=== PATIENT | male | born 1945 | race Caucasian/White ===

== ENCOUNTER → 2017-09-17 09:45 | Outpatient (CLI) | payer MEDICARE, OTHER, SELFPAY ==
--- NOTE | 2017-09-20 14:39 | PM.PFT.1 ---
Pulmonary Function Test Referral & Results Date Patient Seen: 09/17/17 Requesting provider: Spenser Garcia Results: The spirometry demonstrates an FVC of 1.80 L which is 41% of predicted. The FEV1 was measured at 1.21 L which is 38% of predicted. The FEV1/FVC ratio was 67 which is 91% of predicted. Following the administration of bronchodilator there was no appreciable change. Lung volumes show an SVC of 2.09 L which is 46% of predicted. The diffusing capacity was measured at 20.25 which is 62% of predicted. No hemoglobin value was provided, so no correction for potential anemia could be made, if appropriate. The maximum voluntary ventilation was reduced. Interpretation: This study demonstrates moderately severe obstructive lung disease without evidence of benefit following bronchodilator There is also severe restrictive lung disease present and significant disease at the capillary alveolar level based on significant reduction in diffusing capacity Clinical correlation suggested
== END ==
PROVIDERS: Family Provider Family Medicine; PCP Family Medicine; Visit Provider Family Medicine
DX: R06.09 Other forms of dyspnea (principal)
CPT/HCPCS: 94010; 94060; 94726; 94729

== ENCOUNTER → 2017-09-30 10:55 | Outpatient (CLI) | payer MEDICARE, OTHER, SELFPAY ==
--- NOTE | 2017-09-30 10:56 | DI.RAD.S_ITS ---
PROCEDURE: XR CHEST 2V INDICATIONS: shortness of breath TECHNIQUE: 2 views of the chest were acquired. COMPARISON: [facility], , CHEST 2 VIEW, 03/08/2017, 13:37. [facility], , CHEST 1 VIEW, 02/19/2017, 15:59. [facility], , CHEST 2 VIEW, 02/18/2017, 11:25. FINDINGS: Surgical changes and devices: Pacemaking device and dual chamber leads stable over time. Lungs and pleura: No mass in the lung parenchyma is seen. A mild pulmonary edema pattern appears present. Subpulmonic right effusion has mildly enlarged from the comparison study in March of last year. This appears to represent slow interval growth given its presence also in 02/19/17. Mediastinum: Mediastinal contours are normal. Heart size is mildly enlarged. Bones and chest wall: No suspicious bony abnormalities. Soft tissues appear unremarkable. IMPRESSION: Mild cardiomegaly, mild chronic CHF pattern with slowly enlarging subpulmonic right pleural effusion now moderate in size. Pacemaking device and dual chamber leads appear normal. Dictated by: Tha Garner M.D. on 09/30/2017 at 11:20 Approved by: Tha Garner M.D. on 09/30/2017 at 11:24
== END ==
PROVIDERS: Family Provider Family Medicine; PCP Family Medicine; Visit Provider Family Medicine
DX: I51.7 Cardiomegaly (principal); I50.9 Heart failure, unspecified; J90 Pleural effusion, not elsewhere classified; R06.02 Shortness of breath; Z95.0 Presence of cardiac pacemaker
CPT/HCPCS: 71046

== ENCOUNTER → 2018-02-27 15:15 | Outpatient (CLI) | payer MEDICARE, OTHER, SELFPAY | PROVIDERS: PCP Student in an Organized Health Care Education/Training Program; Visit Provider Internal Medicine Cardiovascular Disease | DX: R06.09 Other forms of dyspnea (principal) | CPT/HCPCS: 36415; 83880 ==

== ENCOUNTER 2018-06-02 16:42 | Emergency (ER) | payer MEDICARE, OTHER, SELFPAY ==
[2018-06-02 16:43] VITALS: BP 117/68; PULSE 89; RESP 22; TEMP 36.7; O2SAT 98; BMI 35.4
[2018-06-02 17:18] VITALS: PULSE 61; RESP 16; O2SAT 96
[2018-06-02] MEDS: ALBUTEROL/IPRATROPIUM 3 ML AMPUL INH (17:18)
--- NOTE | 2018-06-02 17:23 | ED.SOB ---
HPI - SOB/Dyspnea General Chief Complaint: Shortness of Breath/Dyspnea Stated Complaint: SOB Time Seen by Provider: 06/02/18 17:23 Source: patient Mode of arrival: ambulatory Limitations: no limitations History of Present Illness The patient has CHF. He has a history of pulmonary effusions, has right side has been tapped 3 times in recent weeks. He complains of increasing dyspnea over last week. He has had orthopnea for the last 5 days. He has no fever or chills. He denies chest pain. He notices swelling in his ankles. He does not check his weight daily. He has a history of atrial fib, he has a pacemaker in. He is anticoagulated. He is a nonsmoker. He is uncertain if he has asthma. He has multiple cardiac risk factors associated with the cardiac disease mentioned above. An echo done last UA shows 60-65 percent EF. He has [id number] concentric LV dysfunction. Related Data Home Medications Medication Instructions Recorded Confirmed atenolol 100 mg PO DAILY 06/02/18 06/02/18 atorvastatin 40 mg PO DAILY 06/02/18 06/02/18 telmisartan [Micardis] 40 mg PO DAILY 06/02/18 06/02/18 torsemide 80 mg PO DAILY 06/02/18 06/02/18 Previous Rx's Medication Instructions Recorded [pen insulin needles ] #30 06/06/12 Glucose: Test Strips str SQ BID #200 03/05/17 [place] 5/16 Inch #1 ea 09/30/17 albuterol sulfate HFA 90 2 puff INHALATION Q4HP PRN #1 ea 09/30/17 mcg/actuation aerosol inhaler fluticasone 110 mcg/actuation HFA 1 puff INHALATION BID #12 gram 11/26/17 aerosol inhaler insulin glargine (U-100) 100 33 unit SUBCUT BID #3 box 01/20/18 unit/mL (3 mL) subcutaneous pen warfarin 5 mg tablet 5 mg PO SEE INSTRUCTIONS #100 tab 05/20/18 Allergies Allergy/AdvReac Type Severity Reaction Status Date / Time latex [LATEX] Allergy Intermediate ITCHING Verified 06/02/18 16:43 Review of Systems Review of Systems ROS Unobtainable: All systems reviewed & are unremarkable except as noted in HPI and below Constitutional Denies chills, Denies fever(s), Denies lethargy and Denies weakness Cardiovascular Denies chest pain, Denies diaphoresis, Denies syncope, Denies rapid heart rate, Reports leg edema and Reports dyspnea Respiratory Denies cough, Reports dyspnea and Reports other (Orthopnea.) Gastrointestinal Gastrointestinal: Denies abdominal pain, Denies change in bowel habits, Denies diarrhea, Denies nausea and Denies vomiting Musculoskeletal Denies back pain and Denies numbness Integumentary/Breasts Denies pruritus, Denies erythema, Denies rash and Denies wounds Neurologic Denies syncope, Denies numbness and Denies weakness [facility] Medical History Sick sinus syndrome (Chronic) Sleep apnea (Chronic) Atrial fibrillation with RVR (Chronic) Essential hypertension (Chronic 03/15/15) History of malignant neoplasm of testis (Chronic 03/15/15) Mixed hyperlipidemia (Chronic 03/15/15) Presence of cardiac pacemaker (Chronic 11/09/14) Arthritis of hip (Chronic 08/05/15) Retinopathy (Chronic 08/05/15) History of smoking (Chronic 08/30/15) Chronic pulmonary edema (Chronic 11/28/15) Cough (Chronic 01/17/16) Shortness of breath (Chronic 01/17/16) Type 2 diabetes mellitus without complication, with long-term current use of insulin (Chronic 09/27/16) Obstructive sleep apnea syndrome (Chronic 12/28/16) Congestive heart failure (Chronic 03/04/17) Pleural effusion on right (Suspected 03/04/17) Aortic atherosclerosis (Chronic Unknown) Atrial fibrillation (Chronic Unknown) Diabetes (Chronic Unknown) Hyperlipemia (Chronic Unknown) Hypertension (Chronic Unknown) Hx of congestive heart failure (Resolved 01/2017) Pacemaker (Resolved 10/2010) Testicular cancer (Resolved Unknown) Surgical History Status post cholecystectomy History of orchiectomy (Resolved 2008) Hx of total hip arthroplasty (Resolved 08/2015) S/P total hip arthroplasty (Chronic) History of colon resection (Resolved 1999) Family History Mother Cancer Social History marital status: household members: spouse lives independently: Yes caregiver/support person: No Smoking Status: Never smoker Family History Mother Cancer Social History marital status: household members: spouse lives independently: Yes caregiver/support person: No Smoking Status: Never smoker Exam Initial Vital Signs Initial Vital Signs: Vital Signs Temperature 98.1 F 06/02/18 16:43 Pulse Rate 89 06/02/18 16:43 Respiratory Rate 22 06/02/18 16:43 Blood Pressure 117/68 06/02/18 16:43 Pulse Oximetry 98 06/02/18 16:43 Const General: cooperative and well developed Nutritional Appearance: well nourished Orientation: alert, awake, oriented x3 and not confused HENMT Face and sinus: normal facial exam Mouth: oral mucosae normal Throat: posterior oropharynx normal Eyes General: appearance normal, both eyes and all related structures Eyelids: eyelids normal Conjunctivae: conjunctivae normal Sclera: sclerae normal Pupils: PERRL EOM: EOM intact bilaterally Neck Neck: No JVD Chest Chest: normal inspection of the chest Resp Effort & Inspection: other (Decreased breath sounds in the right base.) Cardio Rate: regular rate Rhythm: regular rhythm Heart Sounds: S1 normal, S2 normal, no click, no gallops, no murmurs and no rubs Pulses: normal peripheral pulses GI Inspection: non-distended Palpation: soft, no hepatosplenomegaly, No guarding, No pulsatile mass and No tender Auscultation: normal bowel sounds Skin General: no rashes or lesions noted, No jaundice and No petechiae Neuro General: alert, oriented x3, gait normal and no focal motor deficits Speech: speech normal Extrem General: full ROM, no clubbing, cyanosis or edema, no calf tenderness and edema (3+ bilaterally. Peripheral pulses are intact.) Course Course Narrative: the patient is influence. He was diuresed a bit. Chest x-rays shows significant resolution of the effusion he has experienced recently. His heart and lungs are function really well. He is discharged home with requested follow-up with his doctor recheck later this week. Orders Ordered: ED Orders 06/02/18 16:47 Consult to Respiratory Therapy Evaluate & Treat EKG-12 Lead Stat 06/02/18 17:05 B Type Natriuretic Peptide Stat Basic Metabolic Panel Stat Complete Blood Count AUTO DIFF Stat Influenza A and B by PCR Rapid Stat Lactate (Lactic Acid) Stat Magnesium Stat Procalcitonin Stat Troponin & CK Cardiac Panel Stat 06/02/18 17:43 XR chest 1V Stat Discontinued Medications Albuterol/Ipratropium (Duoneb) 3 ml INH NOW ONE Stop: 06/02/18 16:48 Last Admin: 06/02/18 17:18 Dose: 3 ml Furosemide (Lasix) 40 mg IV NOW ONE Stop: 06/02/18 17:30 Last Admin: 06/02/18 17:57 Dose: 40 mg Vital Signs - 8 hr 06/02/18 16:43 06/02/18 17:18 06/02/18 17:43 Temperature 98.1 F 98.0 F Pulse Rate 89 61 64 Respiratory Rate 22 16 18 Blood Pressure 117/68 Blood Pressure [Right Arm] 90/52 L Pulse Oximetry 98 96 100 MDM - SOB/Dyspnea Lab Data Result diagrams: 06/02/18 17:05 06/02/18 17:05 Lab Results 06/02/18 06/02/18 06/02/18 Range/Units 17:05 17:05 17:05 WBC 4.3 L (4.5-11.0) X10^3/uL RBC 4.94 (4.5-5.9) X10^6/uL Hgb 14.9 (13.5-17.5) g/dL Hct 45.5 (41-53) % MCV 92.1 (80-100) fL MCH 30.2 (26-34) PG MCHC 32.8 (30-36) % RDW 14.9 H (11.6-14.8) % Plt Count 189 (150-400) X10^3/uL Neut % (Auto) 53.6 (50-75) % Lymph % (Auto) 22.1 L (25-40) % [place] % (Auto) 20.1 H (3-14) % Eos % (Auto) 3.0 (2-4) % Baso % (Auto) 1.2 (0-2) % Neut # (Auto) 2300 (1954-8244) /uL Lymph # (Auto) 1000 L (4865-7505) /uL [place] # (Auto) 900 (0-900) /uL Eos # (Auto) 100 (0-450) /uL Baso # (Auto) 100 (0-100) /uL Sodium 139 (137-145) mmol/L Potassium 4.3 (3.4-5.1) mmol/L Chloride 100 (98-107) mmol/L Carbon Dioxide 30 (22-32) mmol/L BUN 56 H (9-20) mg/dL Creatinine 2.00 H (0.66-1.25) mg/dL Estimated GFR 32.9 L (>60) mL/min BUN/Creatinine Ratio 28.0 H (6-22) Glucose 142 H (80-110) mg/dL Lactate (0.7-2.1) mmol/L Calcium 8.9 (8.4-10.2) mg/dL Magnesium 2.2 (1.6-2.3) mg/dL Total Creatine Kinase 185 H (55-170) U/L CK-MB (CK-2) 2.05 (<2.37) ng/mL CK-MB (CK-2) Rel Index 1.1 L (1.5-5.0) % Troponin I 0.057 H (0.01-0.034) ng/mL B-Natriuretic Peptide 426 H (<100) Procalcitonin 0.14 (<0.5) ng/mL Influenza A & B (PCR) (Negative) 06/02/18 06/02/18 Range/Units 17:05 17:05 WBC (4.5-11.0) X10^3/uL RBC (4.5-5.9) X10^6/uL Hgb (13.5-17.5) g/dL Hct (41-53) % MCV (80-100) fL MCH (26-34) PG MCHC (30-36) % RDW (11.6-14.8) % Plt Count (150-400) X10^3/uL Neut % (Auto) (50-75) % Lymph % (Auto) (25-40) % [place] % (Auto) (3-14) % Eos % (Auto) (2-4) % Baso % (Auto) (0-2) % Neut # (Auto) (6433-1977) /uL Lymph # (Auto) (4631-1753) /uL [place] # (Auto) (0-900) /uL Eos # (Auto) (0-450) /uL Baso # (Auto) (0-100) /uL Sodium (137-145) mmol/L Potassium (3.4-5.1) mmol/L Chloride (98-107) mmol/L Carbon Dioxide (22-32) mmol/L BUN (9-20) mg/dL Creatinine (0.66-1.25) mg/dL Estimated GFR (>60) mL/min BUN/Creatinine Ratio (6-22) Glucose (80-110) mg/dL Lactate 1.3 (0.7-2.1) mmol/L Calcium (8.4-10.2) mg/dL Magnesium (1.6-2.3) mg/dL Total Creatine Kinase (55-170) U/L CK-MB (CK-2) (<2.37) ng/mL CK-MB (CK-2) Rel Index (1.5-5.0) % Troponin I (0.01-0.034) ng/mL B-Natriuretic Peptide (<100) Procalcitonin (<0.5) ng/mL Influenza A & B (PCR) Positive, type a A (Negative) Imaging Data Chest x-ray: Radiologist's impression: [address] [address] XRay Report Signed Patient: Jenaro Hassan WMR#: [id number] : 6Acct:[id number] Age/Sex: 73 / MDate of Service: 06/02/18 Loc: ED Accession Number: [id number] Procedure: XR chest 1V Ordering Provider: Fernando Jin M.D. PROCEDURE: XR CHEST 1V INDICATIONS: Dyspnea TECHNIQUE: One view of the chest was acquired. COMPARISON: [facility], , XR CHEST 2V, 09/30/2017, 10:35. FINDINGS: Surgical changes and devices: None. Lungs and pleura: Small to moderate size right pleural effusion is seen, decreased compared to previous study. No significant left-sided pleural effusion. Underlying right lower lobe infiltrate cannot be excluded. No gross pneumothorax. Mediastinum: Mediastinal contours appear normal. Heart size is enlarged. Bones and chest wall: No suspicious bony lesions. Overlying soft tissues appear unremarkable. IMPRESSION: Small to moderate right pleural effusion with right lower lobe infiltrate/atelectasis, decreased in size compared to 2018 study. No gross pneumothorax. Dictated by: Dameon Wilson M.D. on 06/02/2018 at 18:18 Approved by: Dameon Wilson M.D. on 06/02/2018 at 18:19 ECG Data Attestation: I personally reviewed and interpreted this ECG as follows: (Paced rhythm rate [address] or T-wave changes.) Discharge Plan Departure Patient Disposition: Home Clinical Impression: Influenza A Interventions: ED Discharge Assessment Last Done: 06/02/18 18:46 Instructions: DI for Influenza -- Adult Activity Restrictions/Additional Instructions: Drink fluids fluids, get plenty of rest. Robitussin as needed for cough if necessary. Tylenol as needed for body pains, discomfort. Recheck with her doctor in 2-3 days if not improving. Return to the ER for worse. Prescriptions: No Action albuterol sulfate [Ventolin HFA] 90 mcg/actuation HFA aerosol inhaler 2 puff INHALATION Q4HP PRN (Reason: shortness of breath or wheezing) Qty: 1 RF: 5 [place] 5/16 Inch .Route .MEDSUPPLY Qty: 1 RF: 3 fluticasone [Flovent HFA] 110 mcg/actuation HFA aerosol inhaler 1 puff INHALATION BID Qty: 12 RF: 5 [pen insulin needles ] Qty: 30 RF: 2 Glucose: Test Strips SQ BID Qty: 200 RF: 0 insulin glargine [Lantus Solostar U-100 Insulin] 100 unit/mL (3 mL) insulin pen 33 unit SUBCUT BID Qty: 3 RF: 5 warfarin [Coumadin] 5 mg tablet 5 mg PO SEE INSTRUCTIONS Qty: 100 RF: 3 atorvastatin 40 mg tablet 40 mg PO DAILY RF: 0 atenolol 100 mg tablet 100 mg PO DAILY RF: 0 torsemide 20 mg tablet 80 mg PO DAILY RF: 0 telmisartan [Micardis] 40 mg tablet 40 mg PO DAILY RF: 0 Referrals: Tristin Buitrago MD [Primary Care Provider] -
--- NOTE | 2018-06-02 17:32 | ED_ITS ---
HPI - SOB/Dyspnea General Chief Complaint: Shortness of Breath/Dyspnea Stated Complaint: SOB Time Seen by Provider: 06/02/18 17:23 Source: patient Mode of arrival: ambulatory Limitations: no limitations History of Present Illness The patient has CHF. He has a history of pulmonary effusions, has right side has been tapped 3 times in recent weeks. He complains of increasing dyspnea over last week. He has had orthopnea for the last 5 days. He has no fever or chills. He denies chest pain. He notices swelling in his ankles. He does not check his weight daily. He has a history of atrial fib, he has a pacemaker in. He is anticoagulated. He is a nonsmoker. He is uncertain if he has asthma. He has multiple cardiac risk factors associated with the cardiac disease mentioned above. An echo done last UA shows 60-65 percent EF. He has [id number] concentric LV dysfunction. Related Data Home Medications Medication Instructions Recorded Confirmed atenolol 100 mg PO DAILY 06/02/18 06/02/18 atorvastatin 40 mg PO DAILY 06/02/18 06/02/18 telmisartan [Micardis] 40 mg PO DAILY 06/02/18 06/02/18 torsemide 80 mg PO DAILY 06/02/18 06/02/18 Previous Rx's Medication Instructions Recorded [pen insulin needles ] #30 06/06/12 Glucose: Test Strips str SQ BID #200 03/05/17 Sulphur 5/16 Inch #1 ea 09/30/17 albuterol sulfate HFA 90 2 puff INHALATION Q4HP PRN #1 ea 09/30/17 mcg/actuation aerosol inhaler fluticasone 110 mcg/actuation HFA 1 puff INHALATION BID #12 gram 11/26/17 aerosol inhaler insulin glargine (U-100) 100 33 unit SUBCUT BID #3 box 01/20/18 unit/mL (3 mL) subcutaneous pen warfarin 5 mg tablet 5 mg PO SEE INSTRUCTIONS #100 tab 05/20/18 Allergies Allergy/AdvReac Type Severity Reaction Status Date / Time latex [LATEX] Allergy Intermediate ITCHING Verified 06/02/18 16:43 Review of Systems Review of Systems ROS Unobtainable: All systems reviewed & are unremarkable except as noted in HPI and below Constitutional Denies chills, Denies fever(s), Denies lethargy and Denies weakness Cardiovascular Denies chest pain, Denies diaphoresis, Denies syncope, Denies rapid heart rate, Reports leg edema and Reports dyspnea Respiratory Denies cough, Reports dyspnea and Reports other (Orthopnea.) Gastrointestinal Gastrointestinal: Denies abdominal pain, Denies change in bowel habits, Denies diarrhea, Denies nausea and Denies vomiting Musculoskeletal Denies back pain and Denies numbness Integumentary/Breasts Denies pruritus, Denies erythema, Denies rash and Denies wounds Neurologic Denies syncope, Denies numbness and Denies weakness [facility] Medical History Sick sinus syndrome (Chronic) Sleep apnea (Chronic) Atrial fibrillation with RVR (Chronic) Essential hypertension (Chronic 03/15/15) History of malignant neoplasm of testis (Chronic 03/15/15) Mixed hyperlipidemia (Chronic 03/15/15) Presence of cardiac pacemaker (Chronic 11/09/14) Arthritis of hip (Chronic 08/05/15) Retinopathy (Chronic 08/05/15) History of smoking (Chronic 08/30/15) Chronic pulmonary edema (Chronic 11/28/15) Cough (Chronic 01/17/16) Shortness of breath (Chronic 01/17/16) Type 2 diabetes mellitus without complication, with long-term current use of insulin (Chronic 09/27/16) Obstructive sleep apnea syndrome (Chronic 12/28/16) Congestive heart failure (Chronic 03/04/17) Pleural effusion on right (Suspected 03/04/17) Aortic atherosclerosis (Chronic Unknown) Atrial fibrillation (Chronic Unknown) Diabetes (Chronic Unknown) Hyperlipemia (Chronic Unknown) Hypertension (Chronic Unknown) Hx of congestive heart failure (Resolved 01/2017) Pacemaker (Resolved 10/2010) Testicular cancer (Resolved Unknown) Surgical History Status post cholecystectomy History of orchiectomy (Resolved 2008) Hx of total hip arthroplasty (Resolved 08/2015) S/P total hip arthroplasty (Chronic) History of colon resection (Resolved 1999) Family History Mother Cancer Social History marital status: household members: spouse lives independently: Yes caregiver/support person: No Smoking Status: Never smoker Family History Mother Cancer Social History marital status: household members: spouse lives independently: Yes caregiver/support person: No Smoking Status: Never smoker Exam Initial Vital Signs Initial Vital Signs: Vital Signs Temperature 98.1 F 06/02/18 16:43 Pulse Rate 89 06/02/18 16:43 Respiratory Rate 22 06/02/18 16:43 Blood Pressure 117/68 06/02/18 16:43 Pulse Oximetry 98 06/02/18 16:43 Const General: cooperative and well developed Nutritional Appearance: well nourished Orientation: alert, awake, oriented x3 and not confused HENMT Face and sinus: normal facial exam Mouth: oral mucosae normal Throat: posterior oropharynx normal Eyes General: appearance normal, both eyes and all related structures Eyelids: eyelids normal Conjunctivae: conjunctivae normal Sclera: sclerae normal Pupils: PERRL EOM: EOM intact bilaterally Neck Neck: No JVD Chest Chest: normal inspection of the chest Resp Effort & Inspection: other (Decreased breath sounds in the right base.) Cardio Rate: regular rate Rhythm: regular rhythm Heart Sounds: S1 normal, S2 normal, no click, no gallops, no murmurs and no rubs Pulses: normal peripheral pulses GI Inspection: non-distended Palpation: soft, no hepatosplenomegaly, No guarding, No pulsatile mass and No tender Auscultation: normal bowel sounds Skin General: no rashes or lesions noted, No jaundice and No petechiae Neuro General: alert, oriented x3, gait normal and no focal motor deficits Speech: speech normal Extrem General: full ROM, no clubbing, cyanosis or edema, no calf tenderness and edema (3+ bilaterally. Peripheral pulses are intact.) Course Course Narrative: the patient is influence. He was diuresed a bit. Chest x- rays shows significant resolution of the effusion he has experienced recently. His heart and lungs are function really well. He is discharged home with requested follow-up with his doctor recheck later this week. Orders Ordered: ED Orders 06/02/18 16:47 Consult to Respiratory Therapy Evaluate & Treat EKG-12 Lead Stat 06/02/18 17:05 B Type Natriuretic Peptide Stat Basic Metabolic Panel Stat Complete Blood Count AUTO DIFF Stat Influenza A and B by PCR Rapid Stat Lactate (Lactic Acid) Stat Magnesium Stat Procalcitonin Stat Troponin & CK Cardiac Panel Stat 06/02/18 17:43 XR chest 1V Stat Discontinued Medications Albuterol/Ipratropium (Duoneb) 3 ml INH NOW ONE Stop: 06/02/18 16:48 Last Admin: 06/02/18 17:18 Dose: 3 ml Furosemide (Lasix) 40 mg IV NOW ONE Stop: 06/02/18 17:30 Last Admin: 06/02/18 17:57 Dose: 40 mg Vital Signs - 8 hr 06/02/18 16:43 06/02/18 17:18 06/02/18 17:43 Temperature 98.1 F 98.0 F Pulse Rate 89 61 64 Respiratory Rate 22 16 18 Blood Pressure 117/68 Blood Pressure [Right Arm] 90/52 L Pulse Oximetry 98 96 100 MDM - SOB/Dyspnea Lab Data Result diagrams: 06/02/18 17:05 06/02/18 17:05 Lab Results 06/02/18 06/02/18 06/02/18 Range/Units 17:05 17:05 17:05 WBC 4.3 L (4.5-11.0) X10^3/uL RBC 4.94 (4.5-5.9) X10^6/uL Hgb 14.9 (13.5-17.5) g/dL Hct 45.5 (41-53) % MCV 92.1 (80-100) fL MCH 30.2 (26-34) PG MCHC 32.8 (30-36) % RDW 14.9 H (11.6-14.8) % Plt Count 189 (150-400) X10^3/uL Neut % (Auto) 53.6 (50-75) % Lymph % (Auto) 22.1 L (25-40) % [place] % (Auto) 20.1 H (3-14) % Eos % (Auto) 3.0 (2-4) % Baso % (Auto) 1.2 (0-2) % Neut # (Auto) 2300 (3877-5251) /uL Lymph # (Auto) 1000 L (7840-0639) /uL [place] # (Auto) 900 (0-900) /uL Eos # (Auto) 100 (0-450) /uL Baso # (Auto) 100 (0-100) /uL Sodium 139 (137-145) mmol/L Potassium 4.3 (3.4-5.1) mmol/L Chloride 100 (98-107) mmol/L Carbon Dioxide 30 (22-32) mmol/L BUN 56 H (9-20) mg/dL Creatinine 2.00 H (0.66-1.25) mg/dL Estimated GFR 32.9 L (>60) mL/min BUN/Creatinine Ratio 28.0 H (6-22) Glucose 142 H (80-110) mg/dL Lactate (0.7-2.1) mmol/L Calcium 8.9 (8.4-10.2) mg/dL Magnesium 2.2 (1.6-2.3) mg/dL Total Creatine Kinase 185 H (55-170) U/L CK-MB (CK-2) 2.05 (<2.37) ng/mL CK-MB (CK-2) Rel Index 1.1 L (1.5-5.0) % Troponin I 0.057 H (0.01-0.034) ng/mL B-Natriuretic Peptide 426 H (<100) Procalcitonin 0.14 (<0.5) ng/mL Influenza A & B (PCR) (Negative) 06/02/18 06/02/18 Range/Units 17:05 17:05 WBC (4.5-11.0) X10^3/uL RBC (4.5-5.9) X10^6/uL Hgb (13.5-17.5) g/dL Hct (41-53) % MCV (80-100) fL MCH (26-34) PG MCHC (30-36) % RDW (11.6-14.8) % Plt Count (150-400) X10^3/uL Neut % (Auto) (50-75) % Lymph % (Auto) (25-40) % [place] % (Auto) (3-14) % Eos % (Auto) (2-4) % Baso % (Auto) (0-2) % Neut # (Auto) (2431-4627) /uL Lymph # (Auto) (3713-5951) /uL [place] # (Auto) (0-900) /uL Eos # (Auto) (0-450) /uL Baso # (Auto) (0-100) /uL Sodium (137-145) mmol/L Potassium (3.4-5.1) mmol/L Chloride (98-107) mmol/L Carbon Dioxide (22-32) mmol/L BUN (9-20) mg/dL Creatinine (0.66-1.25) mg/dL Estimated GFR (>60) mL/min BUN/Creatinine Ratio (6-22) Glucose (80-110) mg/dL Lactate 1.3 (0.7-2.1) mmol/L Calcium (8.4-10.2) mg/dL Magnesium (1.6-2.3) mg/dL Total Creatine Kinase (55-170) U/L CK-MB (CK-2) (<2.37) ng/mL CK-MB (CK-2) Rel Index (1.5-5.0) % Troponin I (0.01-0.034) ng/mL B-Natriuretic Peptide (<100) Procalcitonin (<0.5) ng/mL Influenza A & B (PCR) Positive, type a A (Negative) Imaging Data Chest x-ray: Radiologist's impression: [address] [address] XRay Report Signed Patient: Jenaro Hassan WMR#: [id number] : 6Acct:[id number] Age/Sex: 73 / MDate of Service: 06/02/18 Loc: ED Accession Number: [id number] Procedure: XR chest 1V Ordering Provider: Fernando Jin M.D. PROCEDURE: XR CHEST 1V INDICATIONS: Dyspnea TECHNIQUE: One view of the chest was acquired. COMPARISON: [facility], , XR CHEST 2V, 09/30/2017, 10:35. FINDINGS: Surgical changes and devices: None. Lungs and pleura: Small to moderate size right pleural effusion is seen, decreased compared to previous study. No significant left-sided pleural effusion. Un derlying right lower lobe infiltrate cannot be excluded. No gross pneumothorax. Mediastinum: Mediastinal contours appear normal. Heart size is enlarged. Bones and chest wall: No suspicious bony lesions. Overlying soft tissues appear unremarkable. IMPRESSION: Small to moderate right pleural effusion with right lower lobe infiltrate/atelectasis, decreased in size compared to 2018 study. No gross pneumothorax. Dictated by: Dameon Wilson M.D. on 06/02/2018 at 18:18 Approved by: Dameon Wilson M.D. on 06/02/2018 at 18:19 ECG Data Attestation: I personally reviewed and interpreted this ECG as follows: (Paced rhythm rate [address] or T-wave changes.) Discharge Plan Departure Patient Disposition: Home Clinical Impression: Influenza A Interventions: ED Discharge Assessment Last Done: 06/02/18 18:46 Instructions: DI for Influenza -- Adult Activity Restrictions/Additional Instructions: Drink fluids fluids, get plenty of rest. Robitussin as needed for cough if necessary. Tylenol as needed for body pains, discomfort. Recheck with her doctor in 2-3 days if not improving. Return to the ER for worse. Prescriptions: No Action albuterol sulfate [Ventolin HFA] 90 mcg/actuation HFA aerosol inhaler 2 puff INHALATION Q4HP PRN (Reason: shortness of breath or wheezing) Qty: 1 RF: 5 [place]phur 5/16 Inch .Route .MEDSUPPLY Qty: 1 RF: 3 fluticasone [Flovent HFA] 110 mcg/actuation HFA aerosol inhaler 1 puff INHALATION BID Qty: 12 RF: 5 [pen insulin needles ] Qty: 30 RF: 2 Glucose: Test Strips SQ BID Qty: 200 RF: 0 insulin glargine [Lantus Solostar U-100 Insulin] 100 unit/mL (3 mL) insulin pen 33 unit SUBCUT BID Qty: 3 RF: 5 warfarin [Coumadin] 5 mg tablet 5 mg PO SEE INSTRUCTIONS Qty: 100 RF: 3 atorvastatin 40 mg tablet 40 mg PO DAILY RF: 0 atenolol 100 mg tablet 100 mg PO DAILY RF: 0 torsemide 20 mg tablet 80 mg PO DAILY RF: 0 telmisartan [Micardis] 40 mg tablet 40 mg PO DAILY RF: 0 Referrals: Tristin Buitrago MD [Primary Care Provider] -
[2018-06-02 17:33] LABS: Blood Urea Nitrogen 56 mg/dL (9-20); Calcium 8.9 mg/dL (8.4-10.2); Carbon Dioxide 30 mmol/L (22-32); Chloride 100 mmol/L (98-107); Creatine Kinase 185 U/L (55-170); Estimated Glomerular Filt Rate 32.9 mL/min (>60); Glucose 142 mg/dL (80-110); HEMOLYSIS < 15 (0-50); Lactate (Lactic Acid) 1.3 mmol/L (0.7-2.1); Magnesium 2.2 mg/dL (1.6-2.3); Potassium 4.3 mmol/L (3.4-5.1); Sodium 139 mmol/L (137-145)
[2018-06-02 17:36] LABS: Add Manual Diff / Slide Review NO; Basophils Absolute Auto 100 /uL (0-100); Basophils Percent Auto 1.2 % (0-2); Eosinophils Absolute Auto 100 /uL (0-450); Hematocrit 45.5 % (41-53); Hemoglobin 14.9 g/dL (13.5-17.5); Lymphocytes Absolute Auto 1000 /uL (1100-4500); Lymphocytes Percent Auto 22.1 % (25-40); Mean Corpuscular HGB Conc 32.8 % (30-36); Mean Corpuscular Hemoglobin 30.2 PG (26-34); Mean Corpuscular Volume 92.1 fL (80-100); Monocytes Absolute Auto 900 /uL (0-900); Monocytes Percent Auto 20.1 % (3-14); Neutrophils Absolute Auto 2300 /uL (1500-7000); Neutrophils Percent Auto 53.6 % (50-75); Platelet Count 189 X10^3/uL (150-400); Red Blood Cell Count 4.94 X10^6/uL (4.5-5.9); Red Cell Distribution Width 14.9 % (11.6-14.8); White Blood Cell Count 4.3 X10^3/uL (4.5-11.0)
[2018-06-02 17:43] VITALS: BP 90/52; PULSE 64; RESP 18; TEMP 36.7; O2SAT 100
--- NOTE | 2018-06-02 17:43 | DI.RAD.S_ITS ---
PROCEDURE: XR CHEST 1V INDICATIONS: Dyspnea TECHNIQUE: One view of the chest was acquired. COMPARISON: [facility], CR, XR CHEST 2V, 09/30/2017, 10:35. FINDINGS: Surgical changes and devices: None. Lungs and pleura: Small to moderate size right pleural effusion is seen, decreased compared to previous study. No significant left-sided pleural effusion. Underlying right lower lobe infiltrate cannot be excluded. No gross pneumothorax. Mediastinum: Mediastinal contours appear normal. Heart size is enlarged. Bones and chest wall: No suspicious bony lesions. Overlying soft tissues appear unremarkable. IMPRESSION: Small to moderate right pleural effusion with right lower lobe infiltrate/atelectasis, decreased in size compared to 2018 study. No gross pneumothorax. Dictated by: Dameon Wilson M.D. on 06/02/2018 at 18:18 Approved by: Dameon Wilson M.D. on 06/02/2018 at 18:19
[2018-06-02 17:44] LABS: Troponin I 0.057 ng/mL (0.01-0.034)
[2018-06-02 17:57] LABS: Procalcitonin 0.14 ng/mL (<0.5)
[2018-06-02] MEDS: FUROSEMIDE 40 MG/4 ML VIAL IV (17:57)
[2018-06-02 17:58] LABS: CKMB % Relative Index 1.1 % (1.5-5.0); Creatine Kinase MB 2.05 ng/mL (<2.37)
[2018-06-02 18:01] LABS: B Type Natriuretic Peptide 426 (<100)
== END 2018-06-02 19:57 | disposition home or self-care (01) ==
PROVIDERS: Emergency Provider Emergency Medicine; Family Provider Family Medicine; PCP Student in an Organized Health Care Education/Training Program
DX: J10.1 Influenza due to other identified influenza virus with other respiratory manifestations (principal)
CPT/HCPCS: 36591; 71045; 80048; 82550; 82553; 83605; 83735; 83880; 84145; 84484; 85025; 87400; 93005; 93010; 94640; 96374; 99283; 99285; J1940

== ENCOUNTER → 2018-06-19 08:38 | Outpatient (CLI) | payer MEDICARE, OTHER, SELFPAY ==
--- NOTE | 2018-06-21 10:44 | PM.PFT.1 ---
Pulmonary Function Test Referral & Results Date Patient Seen: 06/19/18 Requesting provider: Nara Saunders Indication: Pleural effusion Results: The spirometry demonstrates an FVC of 2.05 L which is 47% of predicted. The FEV1 was measured at 1.25 L which is 39% of predicted. The FEV1/FVC ratio was 61 which is 83% of predicted. Following the administration of bronchodilator there was a 46% improvement in FEF 25-75%. Lung volumes show an SVC of 2.18 L which is 40% of predicted. The diffusing capacity was measured at 15.61 which is 48% of predicted. No hemoglobin value was provided, so no correction for potential anemia could be made, if appropriate. The maximum voluntary ventilation was reduced Interpretation: This study demonstrates severe obstructive lung disease with limited evidence of benefit following bronchodilator, particularly small airway flow based on improvement in FEF 25-75% There is also moderately severe restrictive lung disease present based on reduction SVC There is a significant reduction in diffusing capacity as well Compared to PFTs performed in August 2017, current study is essentially unchanged although diffusing capacity is slightly reduced compared to previous number Clinical correlation suggested
== END ==
PROVIDERS: Family Provider Family Medicine; PCP Student in an Organized Health Care Education/Training Program; Visit Provider Internal Medicine Critical Care Medicine
DX: J90 Pleural effusion, not elsewhere classified (principal)
CPT/HCPCS: 94060; 94726; 94729

== ENCOUNTER → 2018-09-03 09:58 | Outpatient (CLI) | payer MEDICARE, OTHER, SELFPAY ==
[2018-09-03 11:34] LABS: Hemoglobin A1C% w Est Avg Glu 9.8 % (4.0-6.0)
[2018-09-03 11:42] LABS: BUN Creatinine Ratio 33.8 (6-22); Blood Urea Nitrogen 54 mg/dL (9-20); Calcium 9.6 mg/dL (8.4-10.2); Carbon Dioxide 31 mmol/L (22-32); Chloride 99 mmol/L (98-107); Cholesterol 144 mg/dL (140-199); Estimated Glomerular Filt Rate 42.6 mL/min (>60); Glucose 142 mg/dL (80-110); HDL Cholesterol 26 mg/dL (40-60); HEMOLYSIS < 15 (0-50); LDL Cholesterol Calculated 78 mg/dL (<100); Potassium 4.5 mmol/L (3.4-5.1); Sodium 138 mmol/L (137-145); Triglycerides 201 mg/dL (35-150)
[2018-09-03 11:47] LABS: B Type Natriuretic Peptide 118 (<100)
[2018-09-03 12:14] LABS: Vitamin D 25 Hydroxy (D3) 21.5 ng/mL (30.0-100.0)
== END ==
PROVIDERS: Family Provider Family Medicine; PCP Student in an Organized Health Care Education/Training Program; Visit Provider Student in an Organized Health Care Education/Training Program
DX: E11.9 Type 2 diabetes mellitus without complications (principal); I10 Essential (primary) hypertension; N17.9 Acute kidney failure, unspecified; Z79.4 Long term (current) use of insulin; E55.9 Vitamin D deficiency, unspecified; E78.2 Mixed hyperlipidemia; I50.9 Heart failure, unspecified; J90 Pleural effusion, not elsewhere classified
CPT/HCPCS: 36415; 80048; 80061; 82306; 83036; 83880

== ENCOUNTER → 2018-09-04 09:50 | Outpatient (CLI) | payer MEDICARE, OTHER, SELFPAY ==
[2018-09-04 11:52] LABS: Creatinine Urine Random 105.5 mg/dL
[2018-09-04 12:02] LABS: Microalbumi Creatinin Ratio Ur 5.6 ug/mg CR (<30); Microalbumin Urine Random 0.6 mg/dL (0-1.6)
[2018-09-07 18:39] LABS: Fecal Immunochemical Test NOT DETECTED (NOT DETECTED)
== END ==
PROVIDERS: Family Provider Family Medicine; PCP Student in an Organized Health Care Education/Training Program; Visit Provider Student in an Organized Health Care Education/Training Program
DX: Z12.11 Encounter for screening for malignant neoplasm of colon (principal); E11.9 Type 2 diabetes mellitus without complications; Z79.4 Long term (current) use of insulin
CPT/HCPCS: 82043; 82274; 82570

== ENCOUNTER → 2018-12-12 11:32 | Outpatient (CLI) | payer MEDICARE, OTHER, SELFPAY ==
--- NOTE | 2018-12-12 | DI.CT.S_ITS ---
PROCEDURE: CT CHEST WO CON INDICATIONS: Pleural effusion, not elsewhere classified TECHNIQUE: Noncontrast 5 mm thick sections acquired from the pulmonary apices to the posterior costophrenic angles. 1 mm lung window, 5 mm thick coronal and sagittal and 7 mm axial MIP reformats were then acquired. For radiation dose reduction, the following was used: automated exposure control, adjustment of mA and/or kV according to patient size. COMPARISON: CXR 12/08/2018, 06/02/2018. CT pulmonary angiogram 02/17/2017 FINDINGS: Image quality: Excellent. Lungs: The majority of the right lower lobe is collapsed. Partial collapse of the right middle lobe. Mild atelectasis in the right upper lobe and left lung base a few punctate pulmonary nodules at the right apex and left lung base. Some of these appear calcified. Trace secretions in the upper trachea. Otherwise Central airways are clear. Pleura: Large right pleural effusion which is not significant change in the short-term interval but increased compared to 06/02/2018. In the right pleural effusion was present in January 2017. No effusion on the left. No pneumothorax. Mediastinum: Heart size is normal. Mild mitral annular calcification. Three-vessel coronary artery calcifications. No significant pericardial effusion. Prominent right paratracheal node measuring 2 x 1.9 cm, (05/26), and unchanged since at least 02/17/2017. There is a preserved fatty hilum. Thoracic aorta and central pulmonary arteries are normal in size. Esophagus is normal in caliber. Small paraesophageal nodes are unchanged since 2017. No hiatal hernia. Bones and chest wall: Left upper chest pacemaker device with right atrial and right ventricular leads. No suspicious bony lesions. Thoracic spine kyphosis. No vertebral body compression fractures. No axillary or supraclavicular adenopathy by size criteria. Thyroid gland is unremarkable. Abdomen: Visualized upper abdominal solid organs and bowel loops appear normal in the absence of contrast. IMPRESSION: 1. Large right pleural effusion is unchanged the short-term interval but increased compared to May 2018. No effusion on the left. 2. Stable prominent mediastinal node, fever reactive etiology. Dictated by: Carroll Lee M.D. on 12/12/2018 at 14:23 Approved by: Carroll Lee M.D. on 12/12/2018 at 14:39
== END ==
PROVIDERS: PCP Student in an Organized Health Care Education/Training Program; Visit Provider Thoracic Surgery (Cardiothoracic Vascular Surgery)
DX: J90 Pleural effusion, not elsewhere classified (principal); R91.1 Solitary pulmonary nodule
CPT/HCPCS: 71250

== ENCOUNTER → 2019-01-15 10:45 | Outpatient (CLI) | payer MEDICARE, OTHER, SELFPAY ==
[2019-01-15 11:34] LABS: Add Manual Diff / Slide Review NO; Basophils Absolute Auto 100 /uL (0-100); Basophils Percent Auto 1.3 % (0-2); Eosinophils Absolute Auto 100 /uL (0-450); Eosinophils Percent Auto 0.7 % (2-4); Hematocrit 36.6 % (41-53); Hemoglobin 11.8 g/dL (13.5-17.5); Lymphocytes Absolute Auto 900 /uL (1100-4500); Lymphocytes Percent Auto 10.3 % (25-40); Mean Corpuscular HGB Conc 32.2 % (30-36); Monocytes Absolute Auto 800 /uL (0-900); Monocytes Percent Auto 8.9 % (3-14); Neutrophils Absolute Auto 7000 /uL (1500-7000); Neutrophils Percent Auto 78.8 % (50-75); Platelet Count 433 X10^3/uL (150-400)
[2019-01-15 11:50] LABS: HEMOLYSIS < 15 (0-50)
[2019-01-15 11:57] LABS: BUN Creatinine Ratio 18.6 (6-22); Blood Urea Nitrogen 26 mg/dL (9-20); Calcium 8.5 mg/dL (8.4-10.2); Carbon Dioxide 36 mmol/L (22-32); Chloride 90 mmol/L (98-107); Estimated Glomerular Filt Rate 49.7 mL/min (>60); Glucose 341 mg/dL (80-110); Potassium 3.5 mmol/L (3.4-5.1); Sodium 134 mmol/L (137-145)
[2019-01-15 15:57] LABS: Vitamin B12 397 pg/mL (239-931)
[2019-01-15 17:14] LABS: Hemoglobin A1C% w Est Avg Glu 8.3 % (4.0-6.0)
== END ==
PROVIDERS: PCP Student in an Organized Health Care Education/Training Program; Visit Provider Student in an Organized Health Care Education/Training Program
DX: E11.9 Type 2 diabetes mellitus without complications (principal); I10 Essential (primary) hypertension; I50.9 Heart failure, unspecified; R53.83 Other fatigue; Z79.4 Long term (current) use of insulin
CPT/HCPCS: 36415; 80048; 82607; 83036; 85025

== ENCOUNTER → 2019-01-27 11:45 | Outpatient (CLI) | payer MEDICARE, OTHER, SELFPAY ==
[2019-01-27 12:21] LABS: Hematocrit 34.2 % (41-53); Hemoglobin 11.6 g/dL (13.5-17.5); Mean Corpuscular HGB Conc 33.8 % (30-36); Mean Corpuscular Hemoglobin 28.4 PG (26-34); Mean Corpuscular Volume 84.1 fL (80-100); Platelet Count 439 X10^3/uL (150-400); Red Blood Cell Count 4.07 X10^6/uL (4.5-5.9); Red Cell Distribution Width 16.2 % (11.6-14.8); White Blood Cell Count 7.4 X10^3/uL (4.5-11.0)
[2019-01-27 12:26] LABS: INR 2.1 (0.9-1.3)
[2019-01-27 12:29] LABS: PTT Partial Thromboplastin Tim 39 SECONDS (26.4-36.2)
[2019-01-31 19:15] LABS: ANCA Screen POSITIVE (NEGATIVE)
== END ==
PROVIDERS: PCP Student in an Organized Health Care Education/Training Program; Visit Provider Student in an Organized Health Care Education/Training Program
DX: D69.2 Other nonthrombocytopenic purpura (principal)
CPT/HCPCS: 36415; 85027; 85610; 85730; 86021; 86880

== ENCOUNTER → 2019-02-01 13:53 | Outpatient (CLI) | payer MEDICARE, OTHER, SELFPAY ==
[2019-02-01 14:02] LABS: Bacteria Urine None Seen; RBC Urine None Seen (0-5/HPF); WBC Urine None Seen (0-5/HPF)
[2019-02-01 14:33] LABS: Appearance Urine UA CLEAR; Bilirubin Urine UA NEGATIVE (NEGATIVE); Color Urine UA YELLOW; Glucose Urine UA NEGATIVE (Negative); Ketones Urine UA NEGATIVE (NEGATIVE); Leukocyte Esterase Urine UA NEGATIVE (NEGATIVE); Nitrite Urine UA NEGATIVE (Negative); Occult Blood Urine UA NEGATIVE (Negative); Protein Urine UA NEGATIVE (Negative); Specific Gravity Urine UA <=1.005 (1.000-1.035); Urobilinogen Urine UA 0.2 E.U./dL (0.2); pH Urine UA 6.5 (4.5-8.0)
[2019-02-01 14:38] LABS: Culture Indicated Urine Cult Not Indicated; Urine Comments Microscopic Normal
== END ==
PROVIDERS: PCP Student in an Organized Health Care Education/Training Program; Visit Provider Student in an Organized Health Care Education/Training Program
DX: D69.2 Other nonthrombocytopenic purpura (principal)
CPT/HCPCS: 81001

== ENCOUNTER → 2019-05-08 12:35 | Outpatient (CLI) | payer MEDICARE, OTHER, SELFPAY ==
[2019-05-08 19:13] LABS: Hemoglobin A1C% w Est Avg Glu 8.8 % (4.0-6.0)
== END ==
PROVIDERS: PCP Student in an Organized Health Care Education/Training Program; Referring Provider Student in an Organized Health Care Education/Training Program; Visit Provider Student in an Organized Health Care Education/Training Program
DX: E11.9 Type 2 diabetes mellitus without complications (principal); E55.9 Vitamin D deficiency, unspecified; Z79.4 Long term (current) use of insulin
CPT/HCPCS: 36415; 82306; 83036

== ENCOUNTER → 2020-04-20 10:56 | Outpatient (CLI) | payer MEDICARE, OTHER, SELFPAY ==
--- NOTE | 2020-04-20 11:03 | DI.CT.S_ITS ---
PROCEDURE: CT SINUS SCREEN WO CON INDICATIONS: Chronic pansinusitis TECHNIQUE: Noncontrast 3.0 mm axial images acquired from the frontal sinuses to the mid-sella, with coronal and sagittal reformats. For radiation dose reduction, the following was used: automated exposure control, adjustment of mA and/or kV according to patient size. COMPARISON: None. FINDINGS: Image quality: Excellent. MAXILLARY SINUSES: No mucosal thickening or layering fluid. A small area of mucous versus a mucosal retention cyst measuring 5 mm is present posteriorly in the right maxillary sinus. The ostiomeatal complexes are patent. ETHMOID SINUSES: No mucosal thickening or layering fluid. No bony dehiscence. SPHENOID SINUSES: No mucosal thickening or layering fluid. Sphenoethmoidal recesses are patent. No bony dehiscence. FRONTAL SINUSES: No significant mucosal thickening or fluid. Frontal recesses are patent. MASTOID AIR CELLS: The mastoid air cells are well aerated. SOFT TISSUES: The submandibular glands, parotid glands, and superficial soft tissues of the face are normal. No adenopathy is identified. INNER EAR: No fluid or soft tissue density in the inner ear. NASAL FOSSA: No septal perforation or deviation. There is mild spurring of the septum to the left. No maria esther bullosa or paradoxical turbinates are identified. BONES: The facial bones are intact with no fracture. ORBITS: The orbits and retrobulbar soft tissues are normal. OTHER: The visualized base of the brain has no gross abnormality. IMPRESSION: No significant sinus disease. Dictated by: Sj Melendez M.D. on 04/20/2020 at 11:17 Approved by: Sj Melendez M.D. on 04/20/2020 at 11:22
== END ==
PROVIDERS: PCP Nurse Practitioner; Referring Provider Otolaryngology; Visit Provider Otolaryngology
DX: J32.4 Chronic pansinusitis (principal); R09.82 Postnasal drip; R05 Cough
CPT/HCPCS: 70486

== ENCOUNTER → 2020-05-04 12:52 | Outpatient (CLI) | payer MEDICARE, OTHER, SELFPAY ==
--- NOTE | 2020-05-04 | DI.RAD.S_ITS ---
PROCEDURE: FL BARIUM SWALLOW W SPEECH INDICATIONS: Dysphagia, unspecified COMPARISON: None. TECHNIQUE: Examination was conducted in conjunction with speech pathology per standard protocol. In the lateral projection, filming was performed of the patient swallowing. AP projection filming may also be performed with patient swallowing. COMPARISON: FINDINGS: Function: The oral preparatory phase appears normal, with proper containment. The subsequent oral propulsive phase, pharyngeal phase, and esophageal phase of swallowing also appear normal with all proffered substances. No laryngotracheal penetration or aspiration. There is pooling in the vallecula with thicker substances which is not readily cleared with repeat swallows. Morphology: No cricopharyngeal bar is identified. No cervical esophageal webs. No Zenker's diverticulum. No strictures. IMPRESSION: 1. Bilateral vallecular pooling with thick substances not really cleared with repeat swallows. 2. Otherwise, normal examination. Dictated by: Meg Gasca MD, PhD on 05/04/2020 at 15:49 Approved by: Meg Gasca MD, PhD on 05/04/2020 at 15:54
--- NOTE | 2020-05-04 17:45 | ST.SWALLOW ---
Visit Care Team Role Provider Type JARVIS Islas Primary Care Provider Non-Staff Specialty: Medical Address: [address] , [place], [address] Email: Nathaniel Elliott MD Attending Provider Physician Referring Provider Specialty: Ear, Nose, Throat Address: [address] [place] [address], [id number] Email: [email or web address] Modified Barium Swallow Study INTERVENTIONAL CARDIOLOGIST Modified Barium Swallow Study Start: 05/04/20 17:48 Freq: Status: Active Protocol: Document 05/04/20 17:48 GENIE (Rec: 05/04/20 17:57 GENIE [id number]) Modified Barium Swallow Study Total Time Visit Start Time 13:30 Visit Stop Time 14:00 Total Visit Minutes [address] Nathaniel Elliott Reason for Referral Dysphagia Setting Setting Outpatient Care Patient Information Identification Type Name,ID Card Patient History The pt is a 74-yr-old male with c/o ~1 yr of significant phlegm that was thick and occasionally with traces of blood. He saw ENT who prescribed medication to dry, which helped; however, existing mucus now has significantly more blood. Pt also has frequent coughing with oral intake of solids and liquids, with one episode in which he nearly choked and required assistance from to hit him on the back to expel. He reported discussing this with ENT, who ordered MBS for further evaluation. Subjective Observations The pt arrived on time and provided case history. He was seated in fluoro chair, explained procedures and was agreeable to proceed. Patient Positioning Position View Lat-A/P Imaging Lateral View Textures Administered Trials Presented Thin Liquid via Spoon,Thin Liquid via Cup,Bergland Liquid via Spoon,Bergland Liquid via Cup,Honey Liquid via Spoon, Dysphagia Blenderized Textures ,Regular Textures Oral Phase Source: MBSIMP (TM) (C) Bolus Specific Scoring Grid Lip Closure No Impairment (WNL) Tongue Control During Bolus Hold No Impairment (WNL) Bolus Prep/Mastication No Impairment (WNL) Bolus Transport/Lingual Motion No Impairment (WNL) A/P Lingual Propulsion Delay No Oral Residue WFL Residue Clearing No Impairment (WNL) Nasal Regurgitation No Additional Oral Phase Observations Oral Peripheral Exam: Normal with exception of missing molars bilaterally at upper and lower jaws. Pt reports and demonstrated no significant impact on mastication. Oral Phase: WNL Pharyngeal Phase Source: MBSIMP (TM) (C) Bolus Specific Scoring Grid Delayed Initiation of Pharyngeal Swallow No Soft Palate Elevation No Impairment (WNL) Tongue Base Strength/Range of Motion Mild Impairment Residue Along the Tongue Base Yes Clearance of Residue Along Tongue Base Mild Impairment Laryngeal Elevation Mild Impairment Anterior Hyoid Movement WFL Epiglottic Range of Motion Mild Impairment Vallecular Residue Yes: Moderate Clearance of Vallecular Residue Moderate Impairment Laryngeal Vestibular Closure Mild Impairment Pharyngeal Stripping Wave Mild Impairment Pharyngeal Contraction No Impairment (WNL) Posterior Pharyngeal Wall Residue Yes: Trace Clearance of Posterior Pharyngeal Wall Mild Impairment Residue Upper Esophageal Sphincter Opening No Impairment (WNL) Residue in the Pyriform Sinuses Yes: Trace to mild Clearance of Residue in the Pyriform WFL Sinuses Esophageal Clearance Upright Position No Impairment (WNL) Pharyngoesophageal Backflow Observed No Additional Pharyngeal Phase Observations Hyolaryngeal elevation was decreased; anterior excursion WNL. Air was visualized within laryngeal inlet during all swallows indicating incomplete closure of the vestibule, most likely d/t reduced laryngeal elevation. No laryngeal penetration or tracheal aspiration observed. Moderate pooling at vallecula and coating of posterior epiglottis was observed, as well as aryepiglottic folds, pyriform sinuses and mildly along posterior pharyngeal wall. This mostly, but not completely, cleared with subsequent swallows with greatest amount of continued residue at the vallecula, including ~1/2 of cookie bolus after initial swallow. This cleared with liquid wash. Epiglottic inversion was present but incomplete with inversion to or just below horizontal position with liquids and improved with greater bolus bulk. However, greatest amount of vallecular residue was observed with solids, as described above. Base of tongue and pharyngeal constrictors exhibited mildly decreased strength, consistent with pt's age. The pt did report a burning sensation in his throat with all but thin liquid trials. Question integrity of pharyngeal tissue and recommend further evaluation of such by ENT. A/P View Textures Administered Trials Presented Bergland Liquid via Cup, Dysphagia Blenderized Textures ,Barium Tablet A/P View Observations Pharyngeal Contraction No Impairment (WNL) Esophageal Function No Impairment (WNL) Esophageal Clearance Upright Position No Impairment (WNL) Esophageal Observations Esophageal Function All trials transported through esophagus to stomach without delay, including 13 mm barium tablet. No abnormal esophageal residue observed. Clinical Impressions Dysphagia Type Mild Pharyngeal Dysphagia Findings The pt presents with mild pharyngeal dysphagia secondary to reduced strength/ROM of musculature likely secondary to pt's age. This results in reduced laryngeal elevation during swallow, which leads to incomplete epiglottic inversion (improved with bolus bulk) and incomplete closure of the laryngeal vestibule. No penetration or aspiration was observed; however, mild- moderate pharyngeal residue was present primarily in vallecula and spilling down aryepiglottic folds. With reduced airway closure, the pt is at mild-moderate risk of aspiration, as has been his complaint. The pt c/o a burning sensation in his throat during intake of all but thin liquid trials. No obvious cause of that could be identified via fluoroscopy. Recommended the pt f/u with ENT for discussion and possible further evaluation of pharyngeal tissue. Rehabilitation Potential Excellent Patient Appropriate for Therapy Yes Recommendations Diet Liquids Order Thin Diet Order Regular Medication Recommendation As Tolerated Aspiration Precautions Recommended Precautions Upright at 90 Degrees,Small Bites/Sips,Double Swallow Treatment Plan Therapy Recommendations Outpatient Speech Therapy Compensatory Strategies Recommendations Sitting Upright (90 deg), Double Swallow,Alternate Liquids/Solids Short Term Goals Exercises to increase strength and efficiency of swallow to reduce pharyngeal residue and increase closure of laryngeal vestibule to reduce risk of aspiration. Detention Goals Safe tolerance of regular textures and thin liquids. Placement Recommendation After Discharge Home,Outpatient Therapy Additional Recommendations/Comments Pt to f/u with ENT RE bloody mucus and pain with swallow.
== END ==
PROVIDERS: PCP Nurse Practitioner; Referring Provider Otolaryngology; Visit Provider Otolaryngology
DX: R13.10 Dysphagia, unspecified (principal)
CPT/HCPCS: 74230; 92611